=== PATIENT | male | born 1955 | race Caucasian/White ===

== ENCOUNTER 2019-03-18 15:23 | Inpatient (IN) | payer OTHER ==
[2019-03-18] MEDS ORDERED: ACETAMINOPHEN TAB 325 MG TAB PO PRN (18:41)
[2019-03-18] MEDS: APIXABAN 5 MG TAB PO SCH (20:41)
[2019-03-18] MEDS: CEPHALEXIN 500 MG CAP PO SCH (20:41)
[2019-03-19 07:00] LABS: Basophils # (A) 0.1 k/uL (0-0.2); Basophils % (A) 1 %; Eosinophils # (A) 0.3 k/uL (0-0.7); Eosinophils % (A) 3 %; HCT 31.5 % (39.0-53.0); HGB 10.2 gm/dL (13.0-17.5); Lymphocytes # (A) 1.7 k/uL (1.0-4.8); Lymphocytes % (A) 20 %; MCH 28.5 pg (25.0-35.0); MCHC 32.3 g/dL (31.0-37.0); MCV 88.1 fL (80.0-100.0); Mean Platelet Volume 7.9; Monocytes # (A) 0.4 k/uL (0-1.0); Monocytes % (A) 5 %; Neutrophils # (A) 5.7 k/uL (1.3-7.7); Neutrophils % (A) 69 %; Platelet Count 463 k/uL (150-450); RBC 3.57 m/uL (4.30-5.90); RDW 13.5 % (11.5-15.5); WBC 8.3 k/uL (3.8-10.6)
[2019-03-19 07:02] LABS: ALT 38 U/L (4-49); AST 31 U/L (17-59); African American GFR (CKD) >90 (>60 ml/min/1.73 sqM); Albumin 3.6 g/dL (3.5-5.0); Alkaline Phosphatase 110 U/L (38-126); Anion Gap 6 mmol/L; Blood Urea Nitrogen 21 mg/dL (9-20); Calcium 9.5 mg/dL (8.4-10.2); Carbon Dioxide 32 mmol/L (22-30); Chloride 100 mmol/L (98-107); Glucose 88 mg/dL (74-99); Non-African American GFR(CKD) 87 (>60 ml/min/1.73 sqM); Potassium 4.5 mmol/L (3.5-5.1); Sodium 138 mmol/L (137-145); Total Bilirubin 0.5 mg/dL (0.2-1.3); Total Protein 6.3 g/dL (6.3-8.2)
[2019-03-19] MEDS: CEPHALEXIN 500 MG CAP PO SCH ×2 (08:10→16:39)
[2019-03-19] MEDS: CYANOCOBALAMIN 500 MCG TAB PO SCH (08:10)
[2019-03-19] MEDS: FERROUS SULFATE 325 MG TAB PO SCH (08:10)
[2019-03-19] MEDS: TAMSULOSIN 0.4 MG CAP.ER.24H PO SCH (08:10)
[2019-03-19] MEDS: APIXABAN 5 MG TAB PO SCH ×2 (08:10→21:03)
[2019-03-19] MEDS: FUROSEMIDE 20 MG TAB PO SCH (08:10)
[2019-03-19] MEDS: POTASSIUM CHLORIDE ER 20 MEQ TAB.ER PO SCH (08:10)
[2019-03-19] MEDS ORDERED: DIAZEPAM 5 MG TAB PO STA (12:32)
--- NOTE | 2019-03-19 12:49 | P.HPIM ---
History of Present Illness H&P Date: 03/19/19 Chief Complaint: Mental status changes This is a 63-year-old male patient of Dr. Rene. Patient was hospitalized initially on March 07 at [facility] due to pain and swelling and redness in the left leg after he had an injury where a log landed on his leg while he was cutting wood. His brother used to crowbar to get him out from underneath the log. He had increased pain and swelling redness to the left leg as well as increased confusion. Patient was found to have a DVT in the left leg and significant cellulitis of the leg. He was also found to have renal failure with creatinine of 12 secondary to obstructive uropathy was started on Flomax. The patient was treated with Silvadene and Keflex for cellulitis which has resolved. Patient required Wynn catheter placement for acute kidney injury and obstructive uropathy and was seen by urology as well. He failed a voiding trial in urology placed a coud catheter. Patient had incre asing confusion answering yes or no eye don't note questions. Brother states that he is not at his baseline. CAT scan was done at [facility] that was negative for acute stroke. Carotid Doppler was also negative. Patient was transferred to [facility] as a direct admission with plan to be evaluated by neurology. Now found that neurology is not available until Saturday morning which is March 23. Wynn catheter remains in place. Patient was started on eliquis for DVT. At this time, plan will be to obtain MRI of the brain, continue telemetry to rule out stroke and atrial fibrillation contributing to stroke. No abnormality was seen at [facility] on cardiac m onitor. Patient was evaluated for discharge to both [facility] and [facility] which was denied. Medical [place] is currently evaluating patient for admission. property worker consult will be requested. Review of Systems ROS unobtainable: due to mental status Past Medical History Past Medical History: Deep Vein Thrombosis (DVT), Prostate Disorder Smoking Status: Former smoker Medications and Allergies Home Medications Medication Instructions Recorded Confirmed Type Acetaminophen [Tylenol] 650 mg PO Q6H PRN 03/18/19 03/18/19 History Apixaban [Eliquis] 5 mg PO BID 03/18/19 03/18/19 History Cephalexin [Keflex] 500 mg PO Q8HR 03/18/19 03/18/19 History Cyanocobalamin [Vitamin B-12] 500 mcg PO DAILY 03/18/19 03/18/19 History Ferrous Sulfate [Feosol] 325 mg PO W/BRKFST 03/18/19 03/18/19 History Furosemide [Lasix] 20 mg PO DAILY 03/18/19 03/18/19 History Potassium Chloride ER [K-Dur 20] 20 meq PO DAILY 03/18/19 03/18/19 History SILVER sulfADIAZINE Cream 1 applic TOPICAL DAILY 03/18/19 03/18/19 History [Silvadene 1% Cream] Tamsulosin [Flomax] 0.4 mg PO DAILY 03/18/19 03/18/19 History Allergies Allergy/AdvReac Type Severity Reaction Status Date / Time No Known Allergies Allergy Verified 03/18/19 22:38 Physical Exam Vitals: Vital Signs Temp Pulse Resp BP Pulse Ox 03/19/19 08:00 97.8 F 82 18 124/63 94 L 03/19/19 04:00 98.1 F 71 18 121/70 95 03/19/19 00:00 98.3 F 75 18 124/68 93 L 03/18/19 20:00 98.2 F 90 16 116/62 94 L Intake and Output 03/18/19 03/19/19 03/19/19 22:59 06:59 14:59 Intake Total 120 240 Output Total 400 Balance -280 240 Intake: Oral 120 240 Output: Urine 400 Other: Voiding Method Indwelling Catheter Indwelling Catheter Indwelling Catheter Weight 72 kg 71.4 kg Gen: This is a 63-year-old disheveled appearing male. He is resting in bed appears to be comfortable and in no acute distress. Patient sitter is at the bedside. HEENT: Head is atraumatic, normocephalic. Pupils equal, round. Sclerae is anicteric. NECK: Supple. No JVD. No lymphadenopathy. No thyromegaly. LUNGS: Clear to auscultation. No wheezes or rhonchi. No intercostal retractions. HEART: Regular rate and rhythm. No murmur. ABDOMEN: Soft. Bowel sounds are present. No masses. No tenderness. EXTREMITIES: No pedal edema. No calf tenderness. NEUROLOGICAL: Patient is awake, alert and oriented to person. He is unable to relate his birthdate etc. Cranial nerves 2 through 12 are grossly intact. Results CBC & Chem 7: 03/19/19 06:04 03/19/19 06:04 Labs: Abnormal Lab Results - Last 24 Hours (Table) 03/19/19 03/19/19 Range/Units 06:04 06:04 RBC 3.57 L (4.30-5.90) m/uL Hgb 10.2 L (13.0-17.5) gm/dL Hct 31.5 L (39.0-53.0) % Plt Count 463 H (150-450) k/uL Carbon Dioxide 32 H (22-30) mmol/L BUN 21 H (9-20) mg/dL Thrombosis Risk Factor Assmnt - DVT/VTE Prophylaxis DVT/VTE Prophylaxis: Pharmacologic Prophylaxis ordered Assessment and Plan Plan: 1. Metabolic encephalopathy of unclear etiology, rule out CVA. Consult with neurology on Saturday. MRI of the brain ordered. Continue eliquis, cardiac monitoring to rule out atrial fibrillation. Continue sitter. 2. Acute DVT. Patient was started on eliquis 5 mg twice daily. 3. Acute renal failure secondary to obstructive uropathy, resolved. Continue Flomax 0.4 mg daily and Wynn catheter. 4. Thrombocytosis of unclear etiology. 5. History of adrenal mass. 6. Hydronephrosis, resolved. 7. Anemia of kidney disease. 8. GI prophylaxis. Pepcid. 9. DVT prophylaxis. Eliquis. Patient will be admitted to the hospital for a minimum of 2 night stay. Discharge plan: Possible discharge to medical [place]. Social work consult. Impression and plan of care have been directed as dictated by the signing physician. Kerry Sanabria nurse practitioner acting as scribe for signing physician.
[2019-03-20] MEDS: CEPHALEXIN 500 MG CAP PO SCH ×4 (01:11→23:51)
[2019-03-20] MEDS: FAMOTIDINE 20 MG TAB PO SCH (08:32)
[2019-03-20] MEDS: CYANOCOBALAMIN 500 MCG TAB PO SCH (08:32)
[2019-03-20] MEDS: TAMSULOSIN 0.4 MG CAP.ER.24H PO SCH (08:32)
[2019-03-20] MEDS: APIXABAN 5 MG TAB PO SCH ×2 (08:32→20:51)
[2019-03-20] MEDS: FUROSEMIDE 20 MG TAB PO SCH (08:33)
[2019-03-20] MEDS: FERROUS SULFATE 325 MG TAB PO SCH (08:33)
[2019-03-20] MEDS: POTASSIUM CHLORIDE ER 20 MEQ TAB.ER PO SCH (08:34)
[2019-03-20] MEDS ORDERED: DIAZEPAM 5 MG TAB PO ONE (13:15)
[2019-03-20] MEDS: SENNOSIDES-DOCUSATE SODIUM 1 EACH TAB PO SCH ×2 (13:23→20:51)
--- NOTE | 2019-03-20 15:09 | P.PN ---
Subjective Progress Note Date: 03/20/19 This is a 63-year-old male patient of Dr. Rene. Patient was hospitalized initially on March 07 at [facility] due to pain and swelling and redness in the left leg after he had an injury where a log landed on his leg while he was cutting wood. His brother used to crowbar to get him out from underneath the log. He had increased pain and swelling redness to the left leg as well as increased confusion. Patient was found to have a DVT in the left leg and significant cellulitis of the leg. He was also found to have renal failure with creatinine of 12 secondary to obstructive uropathy was started on Flomax. The patient was treated with Silvadene and Keflex for cellulitis which has resolved. Patient required Wynn catheter placement for acute kidney injury and obstructive uropathy and was seen by urology as well. He failed a voiding trial in urology placed a coud catheter. Patient had increasing confusion answering yes or no eye don't note questions. Brother states that he is not at his baseline. CAT scan was done at [facility] that was negative for acute stroke. Carotid Doppler was also negative. Patient was transferred to [facility] as a direct admission with plan to be evaluated by neurology. Now found that neurology is not available until Saturday morning which is March 23. Wynn catheter remains in place. Patient was started on eliquis for DVT. At this time, plan will be to obtain MRI of the brain, continue telemetry to rule out stroke and atrial fibrillation contributing to stroke. No abnormality was seen at [facility] on diagnostic cardiac sonographer. Patient was evaluated for discharge to both [facility] and [facility] which was denied. Medical [place] is currently evaluating patient for admission. home support worker consult will be requested. 03/20: The patient continues to have a sitter at the bedside. He is scheduled for MRI at 2 in the afternoon. EEG also added. Patient continues to be confused unable to relate his birthday. Mild tenderness in the abdomen noted and Senokot added. No documented bowel movement on record at this facility. Ferrous sulfate will be discontinued if this is contributing to abdominal discomfort. Patient has mild epigastric tenderness. He is afebrile, blood pressure 127/83, heart rate 77. Pulse ox 95% on room air. Review of Systems ROS unobtainable: due to mental status Objective - Vital Signs Vital signs: Vital Signs Temp 98.4 F 03/20/19 00:00 Pulse 77 03/20/19 00:00 Resp 18 03/20/19 00:00 BP 112/78 03/20/19 00:00 Pulse Ox 94 L 03/20/19 00:00 Intake & Output 03/19/19 03/20/19 03/20/19 18:59 06:59 18:59 Intake Total 480 Output Total 1000 650 Balance -520 -650 Weight 69.5 kg Intake: Oral 480 Output: Urine 1000 650 Other: Voiding Method Indwelling Catheter Indwelling Catheter - Exam Gen: This is a 63-year-old disheveled appearing male. He is resting in bed appears to be comfortable and in no acute distress. Patient sitter in place. HEENT: Head is atraumatic, normocephalic. Pupils equal, round. Sclerae is anicteric. NECK: Supple. No JVD. No lymphadenopathy. No thyromegaly. LUNGS: Clear to auscultation. No wheezes or rhonchi. No intercostal retractions. HEART: Regular rate and rhythm. No murmur. ABDOMEN: Soft. Bowel sounds are present. No masses. No tenderness. EXTREMITIES: No pedal edema. No calf tenderness. NEUROLOGICAL: Patient is awake, alert and oriented to person. He is unable to relate his birthdate etc. Cranial nerves 2 through 12 are grossly intact. - Labs CBC & Chem 7: 03/19/19 06:04 03/19/19 06:04 Assessment and Plan Plan: 1. Metabolic encephalopathy of unclear etiology, rule out CVA. Consult with neurology on Saturday. MRI of the brain scheduled for this afternoon. EEG ordered.. Continue eliquis, cardiac monitoring to rule out atrial fibrillation. Continue sitter. 2. Acute DVT. Patient was started on eliquis 5 mg twice daily. 3. Acute renal failure secondary to obstructive uropathy, resolved. Continue Flomax 0.4 mg daily and Wynn catheter. 4. Thrombocytosis of unclear etiology. 5. History of adrenal mass. 6. Hydronephrosis, resolved. 7. Anemia of kidney disease. 8. GI prophylaxis. Pepcid. 9. DVT prophylaxis. Eliquis. Discharge plan: Possible discharge to [facility]. Social work consult. Impression and plan of care have been directed as dictated by the signing physician. Kerry Sanabria nurse practitioner acting as scribe for signing physician.
--- NOTE | 2019-03-20 16:20 | MR ---
EXAMINATION TYPE: MR brain wo/w con DATE OF EXAM: 03/20/2019 COMPARISON: [facility] HISTORY: Mental status changes, confusion CONTRAST: Performed utilizing 7.5 mL intravenous Gadavist gadolinium contrast. TECHNIQUE: Multiplanar, multiecho imaging on a 3.0 Lizette magnet is performed through the brain. Stud y is performed within 24 hours of arrival to the hospital. The craniovertebral junction is normal. The pituitary is normal. Diffusion-weighted imaging is performed. No abnormal hyperintensity is present to suggest an acute i ntracranial infarct or acute ischemic change. There is some mild periventricular white matter hyperintensity on T2 and inversion recovery weighted sequences compatible some microvascular ischemic change. Following contrast administration no abnormal is evident. Ventricles and sulci are appropriate for the patient age. IMPRESSIONS: 1. No acute intracranial process. 2. Age-related atrophy with mild periventricular white matter ischemic type changes.
--- NOTE | 2019-03-20 22:12 | EEG ---
ELECTROENCEPHALOGRAM REPORT PROCEDURE DATE: 03/20/2019 ELECTROENCEPHALOGRAM (EEG) REPORT: TECHNIQUE: A routine 18 channel EEG was performed without video using the 10/20 international electrode placement system. HISTORY: Encephalopathy. CURRENT MEDICATIONS: Flomax, Lasix, Eliquis, Keflex. STUDY DURATION: 25 minutes. FINDINGS: Interpretation was performed at 5-microvolt sensitivity. Please note that portions of the recording were limited in interpretation by the presence of muscle artifact. BACKGROUND: The background activity consisted of 8-9 hertz rhythmic waveforms symmetrically distributed over both posterior quadrants. ACTIVATION: Hyperventilation: Not performed. Photic stimulation: Symmetric driving seen. Sleep: Drowsy. ABNORMALITIES: None. IMPRESSION: Normal EEG. No epileptiform activity was present. No seizures were recorded. MMODL / IJN: [id number] / MTDD
--- NOTE | 2019-03-21 07:19 | P.PN ---
Subjective Progress Note Date: 03/21/19 This is a 63-year-old male patient of Dr. Rene. Patient was hospitalized initially on March 07 at [facility] due to pain and swelling and redness in the left leg after he had an injury where a log landed on his leg while he was cutting wood. His brother used to crowbar to get him out from underneath the log. He had increased pain and swelling redness to the left leg as well as increased confusion. Patient was found to have a DVT in the left leg and significant cellulitis of the leg. He was also found to have renal failure with creatinine of 12 secondary to obstructive uropathy was started on Flomax. The patient was treated with Silvadene and Keflex for cellulitis which has resolved. Patient required Wynn catheter placement for acute kidney injury and obstructive uropathy and was seen by urology as well. He failed a voiding trial in urology placed a coud catheter. Patient had increasing confusion answering yes or no eye don't note questions. Brother states that he is not at his baseline. CAT scan was done at [facility] that was negative for acute stroke. Carotid Doppler was also negative. Patient was transferred to [facility] as a direct admission with plan to be evaluated by neurology. Now found that neurology is not available until Saturday morning which is March 23. Wynn catheter remains in place. Patient was started on eliquis for DVT. At this time, plan will be to obtain MRI of the brain, continue telemetry to rule out stroke and atrial fibrillation contributing to stroke. No abnormality was seen at [facility] on oracle soa architect. Patient was evaluated for discharge to both [facility] and [facility] which was denied. Medical [place] is currently evaluating patient for admission. chemical plant worker consult will be requested. 03/20: The patient continues to have a sitter at the bedside. He is scheduled for MRI at 2 in the afternoon. EEG also added. Patient continues to be confused unable to relate his birthday. Mild tenderness in the abdomen noted and Senokot added. No documented bowel movement on record at this facility. Ferrous sulfate will be discontinued if this is contributing to abdominal discomfort. Patient has mild epigastric tenderness. He is afebrile, blood pressure 127/83, heart rate 77. Pulse ox 95% on room air. 03/21: Yesterday, patient underwent MRI that showed no acute intracranial process. There was age-related atrophy with mild periventricular white matter ischemic changes. EEG was normal. Patient has been afebrile, heart rate 79, blood pressure 114/69, pulse ox 97% on room air. Patient has a sitter at the bedside and continues to have significant confusion. He is awake and alert. Review of Systems Constitutional: No fever, no chills, no night sweats. No weight change. No weakness, fatigue or lethargy. No daytime sleepiness. EENT: No headache. No blurred vision or double vision, no loss of vision. No loss of Hearing, no ringing in the ears, no dizziness. No nasal drainage or congestion. No epistaxis. No sore throat. Lungs: No shortness of breath, cough, no sputum production. No wheezing. Cardiovascular: No chest pain, no lower extremity edema. No palpitations. No paroxysmal nocturnal dyspnea. No orthopnea. No lightheadedness or dizziness. No syncopal episodes. Abdominal: No abdominal pain. No nausea, vomiting. No diarrhea. No constipation. No bloody or tarry stools.. No loss of appetite. Genitourinary: No dysuria, increased frequency, urgency. No urinary retention. Musculoskeletal: No myalgias. No muscle weakness, no gait dysfunction, no frequent falls. No back pain. No neck pain. Integumentary: No wounds, no lesions. No rash or pruritus. No unusual bruising. No change in hair or nails. Neurologic: No aphasia. No facial droop. No change in mentation. No head injury. No headache. No paralysis. No paresthesia. Psychiatric: No depression. No anxiety. No mood swings. Endocrine: No abnormal blood sugars. No weight change. No excessive sweating or thirst. No cold intolerance. Objective - Vital Signs Vital signs: Vital Signs Temp 98.0 F 03/21/19 00:48 Pulse 79 03/21/19 00:48 Resp 16 03/21/19 03:33 BP 114/69 03/21/19 00:48 Pulse Ox 97 03/21/19 00:48 Intake & Output 03/20/19 03/21/19 03/21/19 18:59 06:59 18:59 Intake Total 400 100 Output Total 550 1250 Balance -150 -1150 Weight 70.1 kg Intake: Oral 400 100 Output: Urine 550 1250 Other: Voiding Method Incontinent Incontinent - Exam Gen: This is a 63-year-old disheveled appearing male. He is sitting up in bed appears to be comfortable and in no acute distress. Patient sitter at bedside. HEENT: Head is atraumatic, normocephalic. Pupils equal, round. Sclerae is anicteric. NECK: Supple. No JVD. No lymphadenopathy. No thyromegaly. LUNGS: Clear to auscultation. No wheezes or rhonchi. No intercostal retractions. HEART: Regular rate and rhythm. No murmur. ABDOMEN: Soft. Bowel sounds are present. No masses. No tenderness. EXTREMITIES: No pedal edema. No calf tenderness. No cellulitis in the left lower extremity. This is resolved completely. NEUROLOGICAL: Patient is awake, alert and oriented to person. He is unable to relate his birthdate etc. Cranial nerves 2 through 12 are grossly intact. - Labs CBC & Chem 7: 03/19/19 06:04 03/19/19 06:04 Assessment and Plan Plan: 1. Metabolic encephalopathy of unclear etiology, rule out CVA. Consult with neurology on Saturday. MRI of the brain and EEG showed no acute findings. Continue eliquis, cardiac monitoring ruled out atrial fibrillation. Discontinue telemetry. Continue sitter. 2. Acute DVT. Patient was started on eliquis 5 mg twice daily. 3. Acute renal failure secondary to obstructive uropathy, resolved. Continue Flomax 0.4 mg daily and Wynn catheter. 4. Thrombocytosis of unclear etiology. 5. History of adrenal mass. 6. Hydronephrosis, resolved. 7. Anemia of kidney disease. 8. GI prophylaxis. Pepcid. 9. DVT prophylaxis. Eliquis. 10. Cellulitis of the left lower extremity, resolved. Discontinue Keflex, discontinue Silvadene. Discharge plan: Possible discharge to [facility]. Patient was evaluated at [facility] by [facility] [place] in both have denied admission. Social work consult. Impression and plan of care have been directed as dictated by the signing physician. Kerry Sanabria nurse practitioner acting as scribe for signing physician.
[2019-03-21] MEDS: TAMSULOSIN 0.4 MG CAP.ER.24H PO SCH (07:53)
[2019-03-21] MEDS: SENNOSIDES-DOCUSATE SODIUM 1 EACH TAB PO SCH ×2 (07:53→19:51)
[2019-03-21] MEDS: FAMOTIDINE 20 MG TAB PO SCH (07:54)
[2019-03-21] MEDS: FUROSEMIDE 20 MG TAB PO SCH (07:54)
[2019-03-21] MEDS: CYANOCOBALAMIN 500 MCG TAB PO SCH (07:54)
[2019-03-21] MEDS: POTASSIUM CHLORIDE ER 20 MEQ TAB.ER PO SCH (07:54)
[2019-03-21] MEDS: CEPHALEXIN 500 MG CAP PO SCH (07:54)
[2019-03-21] MEDS: APIXABAN 5 MG TAB PO SCH ×2 (07:54→19:51)
[2019-03-22] MEDS: TAMSULOSIN 0.4 MG CAP.ER.24H PO SCH (08:19)
[2019-03-22] MEDS: FUROSEMIDE 20 MG TAB PO SCH (08:19)
[2019-03-22] MEDS: POTASSIUM CHLORIDE ER 20 MEQ TAB.ER PO SCH (08:19)
[2019-03-22] MEDS: FAMOTIDINE 20 MG TAB PO SCH (08:19)
[2019-03-22] MEDS: SENNOSIDES-DOCUSATE SODIUM 1 EACH TAB PO SCH ×2 (08:19→20:01)
[2019-03-22] MEDS: APIXABAN 5 MG TAB PO SCH ×2 (08:19→20:01)
[2019-03-22] MEDS: CYANOCOBALAMIN 500 MCG TAB PO SCH (08:19)
--- NOTE | 2019-03-22 15:04 | P.PN ---
Subjective Progress Note Date: 03/22/19 This is a 63-year-old male patient of Dr. Rene. Patient was hospitalized initially on March [address] [facility] due to pain and swelling and redness in the left leg after he had an injury where a log landed on his leg while he was cutting wood. His brother used to crowbar to get him out from underneath the log. He had increased pain and swelling redness to the left leg as well as increased confusion. Patient was found to have a DVT in the left leg and significant cellulitis of the leg. He was also found to have renal failure with creatinine of 12 secondary to obstructive uropathy was started on Flomax. The patient was treated with Silvadene and Keflex for cellulitis which has resolved. Patient required Wynn catheter placement for acute kidney injury and obstructive uropathy and was seen by urology as well. He failed a voiding trial in urology placed a coud catheter. Patient had increasing confusion answering yes or no eye don't note questions. Brother states that he is not at his baseline. CAT scan was done at [facility] that was negative for acute stroke. Carotid Doppler was also negative. Patient was transferred to [facility] as a direct admission with plan to be evaluated by neurology. Now found that neurology is not available until Saturday morning which is March 23. Wynn catheter remains in place. Patient was started on eliquis for DVT. At this time, plan will be to obtain MRI of the brain, continue telemetry to rule out stroke and atrial fibrillation contributing to stroke. No abnormality was seen at [facility] on classroom monitor. Patient was evaluated for discharge to both [facility] and [facility] which was denied. [facility] is currently evaluating patient for admission. hired worker consult will be requested. 03/20: The patient continues to have a sitter at the bedside. He is scheduled for MRI at 2 in the afternoon. EEG also added. Patient continues to be confused unable to relate his birthday. Mild tenderness in the abdomen noted and Senokot added. No documented bowel movement on record at this facility. Ferrous sulfate will be discontinued if this is contributing to abdominal discomfort. Patient has mild epigastric tenderness. He is afebrile, blood pressure 127/83, heart rate 77. Pulse ox 95% on room air. 03/21: Yesterday, patient underwent MRI that showed no acute intracranial process. There was age-related atrophy with mild periventricular white matter ischemic changes. EEG was normal. Patient has been afebrile, heart rate 79, blood pressure 114/69, pulse ox 97% on room air. Patient has a sitter at the bedside and continues to have significant confusion. He is awake and alert. 03/22: Patient remains pleasantly confused. He denies any pain in his leg. He denies any abdominal pain. According to nursing staff. Patient's gait is steady when he is up and ambulating. Patient has disconnected his Wynn catheter and bag is being changed by the nurse. Awaiting neurology evaluation which was expected for Saturday but found out today that there is no neurology coverage until March 30. Case management/social research assistant working on discharge planning. Review of Systems Constitutional: No fever, no chills, no night sweats. No weight change. No weakness, fatigue or lethargy. No daytime sleepiness. EENT: No headache. No blurred vision or double vision, no loss of vision. No loss of Hearing, no ringing in the ears, no dizziness. No nasal drainage or congestion. No epistaxis. No sore throat. Lungs: No shortness of breath, cough, no sputum production. No wheezing. Cardiovascular: No chest pain, no lower extremity edema. No palpitations. No paroxysmal nocturnal dyspnea. No orthopnea. No lightheadedness or dizziness. No syncopal episodes. Abdominal: No abdominal pain. No nausea, vomiting. No diarrhea. No constipation. No bloody or tarry stools.. No loss of appetite. Genitourinary: No dysuria, increased frequency, urgency. No urinary retention. Musculoskeletal: No myalgias. No muscle weakness, no gait dysfunction, no frequent falls. No back pain. No neck pain. Integumentary: No wounds, no lesions. No rash or pruritus. No unusual bruising. No change in hair or nails. Neurologic: No aphasia. No facial droop. Positive change in mentation. No head injury. No headache. No paralysis. No paresthesia. Psychiatric: No depression. No anxiety. No mood swings. Endocrine: No abnormal blood sugars. No weight change. No excessive sweating or thirst. No cold intolerance. Objective - Vital Signs Vital signs: Vital Signs Temp 98.1 F 03/22/19 07:39 Pulse 88 03/22/19 07:39 Resp 16 03/22/19 07:39 BP 129/66 03/22/19 07:39 Pulse Ox 97 03/22/19 07:39 Intake & Output 03/21/19 03/22/19 03/22/19 18:59 06:59 18:59 Output Total 1325 500 Balance -1325 -500 Weight 70 kg Output: Urine 1325 500 Other: Voiding Method Indwelling Catheter Indwelling Catheter # Voids 2 # Bowel Movements 2 - Exam Gen: This is a 63-year-old male. He is sitting up in bed appears to be comfortable and in no acute distress. HEENT: Head is atraumatic, normocephalic. Pupils equal, round. Sclerae is anicteric. NECK: Supple. No JVD. No lymphadenopathy. No thyromegaly. LUNGS: Clear to auscultation. No wheezes or rhonchi. No intercostal retractions. HEART: Regular rate and rhythm. No murmur. ABDOMEN: Soft. Bowel sounds are present. No masses. No tenderness. EXTREMITIES: No pedal edema. No calf tenderness. No cellulitis in the left lower extremity. This is resolved completely. NEUROLOGICAL: Patient is awake, alert and oriented to person. He is unable to relate his birthdate etc. Cranial nerves 2 through 12 are grossly intact. - Labs CBC & Chem 7: 03/19/19 06:04 03/19/19 06:04 Assessment and Plan Plan: 1. Metabolic encephalopathy of unclear etiology, rule out CVA. Consult with neurology on Saturday--not available until March 30. MRI of the brain and EEG showed no acute findings. Continue eliquis, cardiac monitoring ruled out atrial fibrillation. Discontinue telemetry. 2. Acute DVT. Patient was started on eliquis 5 mg twice daily. 3. Acute renal failure secondary to obstructive uropathy, resolved. Continue Flomax 0.4 mg daily and Wynn catheter. 4. Thrombocytosis of unclear etiology. 5. History of adrenal mass. 6. Hydronephrosis, resolved. 7. Anemia of kidney disease. 8. GI prophylaxis. Pepcid. 9. DVT prophylaxis. Eliquis. 10. Cellulitis of the left lower extremity, resolved. Discontinue Keflex, discontinue Silvadene. Discharge plan: Possible discharge to [facility]. Patient was evaluated at [facility] by [facility] and [facility] in both have denied admission. Social work consult. Impression and plan of care have been directed as dictated by the signing physician. Kerry Sanabria nurse practitioner acting as scribe for signing physician.
[2019-03-23] MEDS: APIXABAN 5 MG TAB PO SCH ×2 (07:43→21:34)
[2019-03-23] MEDS: FAMOTIDINE 20 MG TAB PO SCH (07:43)
[2019-03-23] MEDS: TAMSULOSIN 0.4 MG CAP.ER.24H PO SCH (07:43)
[2019-03-23] MEDS: FUROSEMIDE 20 MG TAB PO SCH (07:43)
[2019-03-23] MEDS: CYANOCOBALAMIN 500 MCG TAB PO SCH (07:43)
[2019-03-23] MEDS: POTASSIUM CHLORIDE ER 20 MEQ TAB.ER PO SCH (07:43)
[2019-03-23] MEDS: SENNOSIDES-DOCUSATE SODIUM 1 EACH TAB PO SCH ×2 (07:43→21:34)
--- NOTE | 2019-03-23 09:14 | P.DS ---
Providers Date of admission: 03/18/19 18:20 Expected date of discharge: 03/27/19 Attending physician: Lidia Connolly MD Consults: 03/18/19 18:43 Consult Physician Routine Consulting Provider: Katlyn Doss Consult Reason/Comments: stroke like symptoms Do you want consulting provider notified?: Yes Placement Type Exists?: Yes 03/22/19 08:01 Consult Physician Routine Consulting Provider: Bean Aviles Consult Reason/Comments: mental status change Do you want consulting provider notified?: Yes Primary care physician: Frances Rene [facility] Course: This is a 63-year-old male patient of Dr. Rene. Patient was hospitalized initially on March 07 at [facility] due to pain and swelling and redness in the left leg after he had an injury where a log landed on his leg while he was cutting wood. His brother used to crowbar to get him out from underneath the log. He had increased pain and swelling redness to the left leg as well as increased confusion. Patient was found to have a DVT in the left leg and significant cellulitis of the leg. He was also found to have renal failure with creatinine of 12 secondary to obstructive uropathy was s tarted on Flomax. The patient was treated with Silvadene and Keflex for cellulitis which has resolved. Patient required Wynn catheter placement for acute kidney injury and obstructive uropathy and was seen by urology as well. He failed a voiding trial in urology placed a coud catheter. Patient had increasing confusion answering yes or no eye don't note questions. Brother states that he is not at his baseline. CAT scan was done at [facility] that was negative for acute stroke. Carotid Doppler was also negative. Patient was transferred to [facility] as a direct admission with plan to be evaluated by neurology. Now found that neurology is not available until Saturday morning which is March 23. Wynn catheter remains in place. Patient was started on eliquis for DVT. At this time, plan will be to obtain MRI of the brain, continue telemetry to rule out stroke and atrial fibrillation contributing to stroke. No abnormality was seen at [facility] on cardiac catheterization technologist. Patient was evaluated for discharge to both [facility] and [facility] which was denied. [facility] is currently evaluating patient for admission. structural layout worker consult will be requested. 03/20: The patient continues to have a sitter at the bedside. He is scheduled for MRI at 2 in the afternoon. EEG also added. Patient continues to be confused unable to relate his birthday. Mild tenderness in the abdomen noted and Senokot added. No documented bowel movement on record at this facility. Ferrous sulfate will be discontinued if this is contributing to abdominal discomfort. Gladis roy has mild epigastric tenderness. He is afebrile, blood pressure 127/83, heart rate 77. Pulse ox 95% on room air. 03/21: Yesterday, patient underwent MRI that showed no acute intracranial proce ss. There was age-related atrophy with mild periventricular white matter ischemic changes. EEG was normal. Patient has been afebrile, heart rate 79, blood pressure 114/69, pulse ox 97% on room air. Patient has a sitter at the bedside and continues to have significant confusion. He is awake and alert. 03/22: Patient remains pleasantly confused. He denies any pain in his leg. He denies any abdominal pain. According to nursing staff. Patient's gait is steady when he is up and ambulating. Patient has disconnected his Wynn catheter and bag is being changed by the nurse. Awaiting neurology evaluation which was expected for Saturday but found out today that there is no neurology coverage until March 30. Case management/social problems specialist working on discharge planning. 03/23: patient remains quite confused but he is able to relate his birthday. He denies having any pain in the lower leg. His gait is steady. He remains with coud catheter in place to Wynn bag. off track betting manager has contacted the patient's brother and he will not be able to pick him up for 10-14 days. 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 Social work will be requested. 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 03/24: The patient states that he wants to get out of here. He is able to relate that he is in the hospital. Brother continues to refuse to pick him up. Social work is working on issues and discharge planning. He has been afebrile, heart rate 70, blood pressure 120/70, pulse ox 97% on room air. 03/25: Patient has had no events overnight. Social work met with Adult Protective Services yesterday with the patient and will be going to the patient's home today. [facility] is evaluating the patient for subacute rehab. Speech therapy has evaluated. Please see ST evaluation. Patient has been afebrile, heart rate 60, blood pressure 134/77, pulse ox 99% on room air. 03/26: Insurance has denied authorization for subacute rehab. Social work continues to work with the patient and family for discharge planning. Adult protective services have been involved. Home was found to be at 37 today. There is a furnace problem although wood stove is working in the home. Patient is afebrile, blood pressure 115/55, heart rate 69, pulse ox 97% on room air. There is an AST that may come in tomorrow to evaluate the patient for placement there. Patient currently does not have a PCP and social work is working with family to find a physician for the patient. The patient is unsafe for discharge to home. 03/27: The patient has refused to take his medications this morning. He states he wants to go home. Social work continues to work on discharge planning. Adult foster care was to come in and evaluate the patient but they have not been here. Adult Protective Services are also involved. Patient has been afebrile, heart rate 71, blood pressure 125/75, pulse ox 100% on room air. SEE SOCIAL WORK NOTES. Patient home with family. Discharge diagnoses: 1. Metabolic encephalopathy of unclear etiology, ruled out CVA. 2. Acute DVT. 3. Acute renal failure secondary to obstructive uropathy, resolved. 4. Thrombocytosis of unclear etiology. 5. History of adrenal mass. 6. Hydronephrosis, resolved. 7. Anemia of kidney disease. 8. Cellulitis of the left lower extremity, resolved. 10. Cellulitis of the left lower extremity, resolved. Discharge plan: home Impression and plan of care have been directed as dictated by the signing physician. Kerry Sanabria nurse practitioner acting as scribe for signing physician. Patient Condition at Discharge: Good Plan - Discharge Summary New Discharge Prescriptions: Continue Ferrous Sulfate [Feosol] 325 mg PO W/BRKFST Cyanocobalamin [Vitamin B-12] 500 mcg PO DAILY Apixaban [Eliquis] 5 mg PO BID #60 tab Tamsulosin [Flomax] 0.4 mg PO DAILY #30 cap Potassium Chloride ER [K-Dur 20] 20 meq PO DAILY #30 tab Furosemide [Lasix] 20 mg PO DAILY #30 tab Discontinued SILVER sulfADIAZINE Cream [Silvadene 1% Cream] 1 applic TOPICAL DAILY Cephalexin [Keflex] 500 mg PO Q8HR Acetaminophen [Tylenol] 650 mg PO Q6H PRN PRN Reason: Pain Discharge Medication List Cyanocobalamin [Vitamin B-12] 500 mcg PO DAILY 03/18/19 [History] Ferrous Sulfate [Feosol] 325 mg PO W/BRKFST 03/18/19 [History] Apixaban [Eliquis] 5 mg PO BID #60 tab 03/23/19 [Rx] Furosemide [Lasix] 20 mg PO DAILY #30 tab 03/23/19 [Rx] Potassium Chloride ER [K-Dur 20] 20 meq PO DAILY #30 tab 03/23/19 [Rx] Tamsulosin [Flomax] 0.4 mg PO DAILY #30 cap 03/23/19 [Rx] Follow up Appointment(s)/Referral(s): John Friedman MD [STAFF PHYSICIAN] - 1 Week Donn Felder MD [STAFF PHYSICIAN] - 1 Week Discharge Disposition: HOME WITH HOME HEALTH SERVICES
[2019-03-24] MEDS: TAMSULOSIN 0.4 MG CAP.ER.24H PO SCH (08:01)
[2019-03-24] MEDS: CYANOCOBALAMIN 500 MCG TAB PO SCH (08:01)
[2019-03-24] MEDS: POTASSIUM CHLORIDE ER 20 MEQ TAB.ER PO SCH (08:01)
[2019-03-24] MEDS: SENNOSIDES-DOCUSATE SODIUM 1 EACH TAB PO SCH ×2 (08:01→21:46)
[2019-03-24] MEDS: FUROSEMIDE 20 MG TAB PO SCH (08:01)
[2019-03-24] MEDS: FAMOTIDINE 20 MG TAB PO SCH (08:01)
[2019-03-24] MEDS: APIXABAN 5 MG TAB PO SCH ×2 (08:01→21:46)
[2019-03-24 11:18] LABS: HCT 36.8 % (39.0-53.0); HGB 11.6 gm/dL (13.0-17.5); MCHC 31.5 g/dL (31.0-37.0); MCV 88.8 fL (80.0-100.0); Mean Platelet Volume 8.3; Platelet Count 421 k/uL (150-450); RBC 4.14 m/uL (4.30-5.90); RDW 13.9 % (11.5-15.5); WBC 8.1 k/uL (3.8-10.6)
[2019-03-24 11:30] LABS: Albumin 4.3 g/dL (3.5-5.0); Calcium 9.8 mg/dL (8.4-10.2); Potassium 4.6 mmol/L (3.5-5.1); Total Bilirubin 0.6 mg/dL (0.2-1.3); Total Protein 7.3 g/dL (6.3-8.2)
--- NOTE | 2019-03-24 14:06 | P.PN ---
Subjective Progress Note Date: 03/23/19 This is a 63-year-old male patient of Dr. Rene. Patient was hospitalized initially on March 07 at [facility] due to pain and swelling and redness in the left leg after he had an injury where a log landed on his leg while he was cutting wood. His brother used to crowbar to get him out from underneath the log. He had increased pain and swelling redness to the left leg as well as increased confusion. Patient was found to have a DVT in the left leg and significant cellulitis of the leg. He was also found to have renal failure with creatinine of 12 secondary to obstructive uropathy was started on Flomax. The patient was treated with Silvadene and Keflex for cellulitis which has resolved. Patient required Wynn catheter placement for acute kidney injury and obstructive uropathy and was seen by urology as well. He failed a voiding trial in urology placed a coud catheter. Patient had increasing confusion answering yes or no eye don't note questions. Brother states that he is not at his baseline. CAT scan was done at [facility] that was negative for acute stroke. Carotid Doppler was also negative. Patient was transferred to [facility] as a direct admission with plan to be evaluated by neurology. Now found that neurology is not available until Saturday morning which is March 23. Wynn catheter remains in place. Patient was started on eliquis for DVT. At this time, plan will be to obtain MRI of the brain, continue telemetry to rule out stroke and atrial fibrillation contributing to stroke. No abnormality was seen at [facility] on site monitor. Patient was evaluated for discharge to both [facility] and [facility] which was denied. [facility] [place] is currently evaluating patient for admission. foster care social worker consult will be requested. 03/20: The patient continues to have a sitter at the bedside. He is scheduled for MRI at 2 in the afternoon. EEG also added. Patient continues to be confused unable to relate his birthday. Mild tenderness in the abdomen noted and Senokot added. No documented bowel movement on record at this facility. Ferrous sulfate will be discontinued if this is contributing to abdominal discomfort. Patient has mild epigastric tenderness. He is afebrile, blood pressure 127/83, heart rate 77. Pulse ox 95% on room air. 03/21: Yesterday, patient underwent MRI that showed no acute intracranial process. There was age-related atrophy with mild periventricular white matter ischemic changes. EEG was normal. Patient has been afebrile, heart rate 79, blood pressure 114/69, pulse ox 97% on room air. Patient has a sitter at the bedside and continues to have significant confusion. He is awake and alert. 03/22: Patient remains pleasantly confused. He denies any pain in his leg. He denies any abdominal pain. According to nursing staff. Patient's gait is steady when he is up and ambulating. Patient has disconnected his Wynn catheter and bag is being changed by the nurse. Awaiting neurology evaluation which was expected for Saturday but found out today that there is no neurology coverage until March 30. Case management/high school social science teacher working on discharge planning. 03/23; patient remains quite confused but he is able to relate his birthday. He denies having any pain in the lower leg. His gait is steady. He remains with coud catheter in place to Wynn bag. affiliate marketing manager has contacted the patient's brother and he will not be able to pick him up for 10-14 days. 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 Social work will be requested. 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 Review of Systems Constitutional: No fever, no chills, no night sweats. No weight change. No we akness, fatigue or lethargy. No daytime sleepiness. EENT: No headache. No blurred vision or double vision, no loss of vision. No loss of Hearing, no ringing in the ears, no dizziness. No nasal drainage or congestion. No epistaxis. No sore throat. Lungs: No shortness of breath, cough, no sputum production. No wheezing. Cardiovascular: No chest pain, no lower extremity edema. No palpitations. No paroxysmal nocturnal dyspnea. No orthopnea. No lightheadedness or dizziness. No syncopal episodes. Abdominal: No abdominal pain. No nausea, vomiting. No diarrhea. No constipation. No bloody or tarry stools.. No loss of appetite. Genitourinary: No dysuria, increased frequency, urgency. Reports urinary retention. Musculoskeletal: No myalgias. No muscle weakness, no gait dysfunction, no frequent falls. No back pain. No neck pain. Integumentary: No wounds, no lesions. No rash or pruritus. No unusual bruising. No change in hair or nails. Neurologic: No aphasia. No facial droop. Positive change in mentation. No head injury. No headache. No paralysis. No paresthesia. Psychiatric: No depression. No anxiety. No mood swings. Endocrine: No abnormal blood sugars. No weight change. No excessive sweating or thirst. No cold intolerance. Objective - Vital Signs Vital signs: Vital Signs Temp 97.6 F 03/23/19 14:52 Pulse 101 H 03/23/19 14:52 Resp 16 03/23/19 14:52 BP 119/75 03/23/19 14:52 Pulse Ox 90 L 03/23/19 14:52 Intake & Output 03/22/19 03/23/19 03/23/19 18:59 06:59 18:59 Intake Total 500 430 472 Output Total 250 Balance 500 180 472 Intake: Oral 500 430 472 Output: Urine 250 Other: Voiding Method Indwelling Catheter Indwelling Catheter Indwelling Catheter # Voids 1 - Exam Gen: This is a 63-year-old male. He is sitting up in bed appears to be comfortable and in no acute distress. HEENT: Head is atraumatic, normocephalic. Pupils equal, round. Sclerae is anicteric. NECK: Supple. No JVD. No lymphadenopathy. No thyromegaly. LUNGS: Clear to auscultation. No wheezes or rhonchi. No intercostal retractions. HEART: Regular rate and rhythm. No murmur. ABDOMEN: Soft. Bowel sounds are present. No masses. No tenderness. Wynn catheter draining clear anthony urine. EXTREMITIES: No pedal edema. No calf tenderness. No cellulitis in the left lower extremity. This is resolved completely. NEUROLOGICAL: Patient is awake, alert and oriented to person. He is unable to relate his birthdate etc. Cranial nerves 2 through 12 are grossly intact. - Labs CBC & Chem 7: 03/24/19 11:02 03/24/19 11:02 Assessment and Plan Plan: 1. Metabolic encephalopathy of unclear etiology, ruled out CVA. Consult with neurology on Saturday--not available until March 30. MRI of the brain and EEG showed no acute findings. Continue eliquis, cardiac monitoring ruled out atrial fibrillation. Discontinue telemetry. 2. Acute DVT. Patient was started on eliquis 5 mg twice daily. 3. Acute renal failure secondary to obstructive uropathy, resolved. Continue Flomax 0.4 mg daily and maintain Wynn catheter. 4. Thrombocytosis of unclear etiology. 5. History of adrenal mass. 6. Hydronephrosis, resolved. 7. Anemia of kidney disease. 8. GI prophylaxis. Pepcid. 9. DVT prophylaxis. Eliquis. 10. Cellulitis of the left lower extremity, resolved. Discontinue Keflex, discontinue Silvadene. [facility] Social work consult. Impression and plan of care have been directed as dictated by the signing physician. Kerry Sanabria nurse practitioner acting as scribe for signing physician.
--- NOTE | 2019-03-24 14:08 | P.PN ---
Subjective Progress Note Date: 03/24/19 This is a 63-year-old male patient of Dr. Rene. Patient was hospitalized initially on March 07 at [facility] due to pain and swelling and redness in the left leg after he had an injury where a log landed on his leg while he was cutting wood. His brother used to crowbar to get him out from underneath the log. He had increased pain and swelling redness to the left leg as well as increased confusion. Patient was found to have a DVT in the left leg and significant cellulitis of the leg. He was also found to have renal failure with creatinine of 12 secondary to obstructive uropathy was started on Flomax. The patient was treated with Silvadene and Keflex for cellulitis which has resolved. Patient required Wynn catheter placement for acute kidney injury and obstructive uropathy and was seen by urology as well. He failed a voiding trial in urology placed a coud catheter. Patient had increasing confusion answering yes or no eye don't note questions. Brother states that he is not at his baseline. CAT scan was done at [facility] that was negative for acute stroke. Carotid Doppler was also negative. Patient was transferred to [facility] as a direct admission with plan to be evaluated by neurology. Now found that neurology is not available until Saturday morning which is March 23. Wynn catheter remains in place. Patient was started on eliquis for DVT. At this time, plan will be to obtain MRI of the brain, continue telemetry to rule out stroke and atrial fibrillation contributing to stroke. No abnormality was seen at [facility] on campus monitor. Patient was evaluated for discharge to both [facility] and [facility] which was denied. [facility] [place] is currently evaluating patient for admission. runner worker consult will be requested. 03/20: The patient continues to have a sitter at the bedside. He is scheduled for MRI at 2 in the afternoon. EEG also added. Patient continues to be confused unable to relate his birthday. Mild tenderness in the abdomen noted and Senokot added. No documented bowel movement on record at this facility. Ferrous sulfate will be discontinued if this is contributing to abdominal discomfort. Patient has mild epigastric tenderness. He is afebrile, blood pressure 127/83, heart rate 77. Pulse ox 95% on room air. 03/21: Yesterday, patient underwent MRI that showed no acute intracranial process. There was age-related atrophy with mild periventricular white matter ischemic changes. EEG was normal. Patient has been afebrile, heart rate 79, blood pressure 114/69, pulse ox 97% on room air. Patient has a sitter at the bedside and continues to have significant confusion. He is awake and alert. 03/22: Patient remains pleasantly confused. He denies any pain in his leg. He denies any abdominal pain. According to nursing staff. Patient's gait is steady when he is up and ambulating. Patient has disconnected his Wynn catheter and bag is being changed by the nurse. Awaiting neurology evaluation which was expected for Saturday but found out today that there is no neurology coverage until March 30. Case management/social work administrator working on discharge planning. 03/23; patient remains quite confused but he is able to relate his birthday. He denies having any pain in the lower leg. His gait is steady. He remains with coud catheter in place to Wynn bag. signal manager has contacted the patient's brother and he will not be able to pick him up for 10-14 days. 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 Social work will be requested. 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 03/24: The patient states that he wants to get out of here. He is able to relate that he is in the hospital. Brother continues to refuse to pick him up. Social work is working on issues and discharge planning. He has been afebrile, heart rate 70, blood pressure 120/70, pulse ox 97% on room air. Review of Systems Constitutional: No fever, no chills, no night sweats. No weight change. No we akness, fatigue or lethargy. EENT: No headache. No blurred vision or double vision, no loss of vision. No loss of Hearing, no ringing in the ears, no dizziness. No nasal drainage or congestion. No epistaxis. No sore throat. Lungs: No shortness of breath, cough, no sputum production. No wheezing. Cardiovascular: No chest pain, no lower extremity edema. No palpitations. No paroxysmal nocturnal dyspnea. No orthopnea. No lightheadedness or dizziness. No syncopal episodes. Abdominal: No abdominal pain. No nausea, vomiting. No diarrhea. No constipation. No bloody or tarry stools.. No loss of appetite. Genitourinary: No dysuria, increased frequency, urgency. Reports urinary reten tion. Musculoskeletal: No myalgias. No muscle weakness, no gait dysfunction, no frequent falls. No back pain. No neck pain. Integumentary: No wounds, no lesions. No rash or pruritus. No unusual b ruising. No change in hair or nails. Neurologic: No aphasia. No facial droop. Positive change in mentation. No head injury. No headache. No paralysis. No paresthesia. Psychiatric: No depression. No anxiety. No mood swings. Endocrine: No abnormal blood sugars. No weight change. No excessive sweating or thirst. No cold intolerance. Objective - Vital Signs Vital signs: Vital Signs Temp 98.1 F 03/24/19 07:00 Pulse 70 03/24/19 07:00 Resp 18 03/24/19 07:00 BP 120/70 03/24/19 07:00 Pulse Ox 97 03/24/19 07:00 Intake & Output 03/23/19 03/24/19 03/24/19 18:59 06:59 18:59 Intake Total 1248 Balance 1248 Intake: Oral 1248 Other: Voiding Method Indwelling Catheter Indwelling Catheter Indwelling Catheter - Exam Gen: This is a 63-year-old male. He is sitting up in chair appears to be comfortable and in no acute distress. HEENT: Head is atraumatic, normocephalic. Pupils equal, round. Sclerae is anicteric. NECK: Supple. No JVD. No lymphadenopathy. No thyromegaly. LUNGS: Clear to auscultation. No wheezes or rhonchi. No intercostal retractions. HEART: Regular rate and rhythm. No murmur. ABDOMEN: Soft. Bowel sounds are present. No masses. No tenderness. Wynn catheter draining clear anthony urine. EXTREMITIES: No pedal edema. No calf tenderness. No cellulitis in the left lower extremity. This is resolved completely. NEUROLOGICAL: Patient is awake, alert and oriented to person. He is unable to relate his birthdate etc. Cranial nerves 2 through 12 are grossly intact. - Labs CBC & Chem 7: 03/24/19 11:02 03/24/19 11:02 Assessment and Plan Plan: 1. Metabolic encephalopathy of unclear etiology, ruled out CVA. Consult with neurology on Saturday--not available until March 30. MRI of the brain and EEG showed no acute findings. Continue eliquis, cardiac monitoring ruled out atrial fibrillation. Discontinue telemetry. 2. Acute DVT. Patient was started on eliquis 5 mg twice daily. 3. Acute renal failure secondary to obstructive uropathy, resolved. Continue Flomax 0.4 mg daily and maintain Wynn catheter. 4. Thrombocytosis of unclear etiology. 5. History of adrenal mass. 6. Hydronephrosis, resolved. 7. Anemia of kidney disease. 8. GI prophylaxis. Pepcid. 9. DVT prophylaxis. Eliquis. 10. Cellulitis of the left lower extremity, resolved. Discontinue Keflex, discontinue Silvadene. Discharge plan: Possible discharge to [facility]. Social work consult in place. Impression and plan of care have been directed as dictated by the signing physician. Kerry Sanabria nurse practitioner acting as scribe for signing physician.
[2019-03-25] MEDS: CYANOCOBALAMIN 500 MCG TAB PO SCH (08:43)
[2019-03-25] MEDS: SENNOSIDES-DOCUSATE SODIUM 1 EACH TAB PO SCH ×2 (08:44→20:57)
[2019-03-25] MEDS: POTASSIUM CHLORIDE ER 20 MEQ TAB.ER PO SCH (08:44)
[2019-03-25] MEDS: APIXABAN 5 MG TAB PO SCH ×2 (08:44→20:57)
[2019-03-25] MEDS: TAMSULOSIN 0.4 MG CAP.ER.24H PO SCH (08:44)
[2019-03-25] MEDS: FUROSEMIDE 20 MG TAB PO SCH (08:44)
[2019-03-25] MEDS: FAMOTIDINE 20 MG TAB PO SCH (08:44)
--- NOTE | 2019-03-25 11:12 | P.PN ---
Subjective Progress Note Date: 03/25/19 This is a 63-year-old male patient of Dr. Rene. Patient was hospitalized initially on March 07 at [facility] due to pain and swelling and redness in the left leg after he had an injury where a log landed on his leg while he was cutting wood. His brother used to crowbar to get him out from underneath the log. He had increased pain and swelling redness to the left leg as well as increased confusion. Patient was found to have a DVT in the left leg and significant cellulitis of the leg. He was also found to have renal failure with creatinine of 12 secondary to obstructive uropathy was started on Flomax. The patient was treated with Silvadene and Keflex for cellulitis which has resolved. Patient required Wynn catheter placement for acute kidney injury and obstructive uropathy and was seen by urology as well. He failed a voiding trial in urology placed a coud catheter. Patient had increasing confusion answering yes or no eye don't note questions. Brother states that he is not at his baseline. CAT scan was done at [facility] that was negative for acute stroke. Carotid Doppler was also negative. Patient was transferred to [facility] as a direct admission with plan to be evaluated by neurology. Now found that neurology is not available until Saturday morning which is March 23. Wynn catheter remains in place. Patient was started on eliquis for DVT. At this time, plan will be to obtain MRI of the brain, continue telemetry to rule out stroke and atrial fibrillation contributing to stroke. No abnormality was seen at [facility] on hall monitor. Patient was evaluated for discharge to both [facility] and [facility] which was denied. [facility] [place] is currently evaluating patient for admission. cut and cover line worker consult will be requested. 03/20: The patient continues to have a sitter at the bedside. He is scheduled for MRI at 2 in the afternoon. EEG also added. Patient continues to be confused unable to relate his birthday. Mild tenderness in the abdomen noted and Senokot added. No documented bowel movement on record at this facility. Ferrous sulfate will be discontinued if this is contributing to abdominal discomfort. Patient has mild epigastric tenderness. He is afebrile, blood pressure 127/83, heart rate 77. Pulse ox 95% on room air. 03/21: Yesterday, patient underwent MRI that showed no acute intracranial process. There was age-related atrophy with mild periventricular white matter ischemic changes. EEG was normal. Patient has been afebrile, heart rate 79, blood pressure 114/69, pulse ox 97% on room air. Patient has a sitter at the bedside and continues to have significant confusion. He is awake and alert. 03/22: Patient remains pleasantly confused. He denies any pain in his leg. He denies any abdominal pain. According to nursing staff. Patient's gait is steady when he is up and ambulating. Patient has disconnected his Wynn catheter and bag is being changed by the nurse. Awaiting neurology evaluation which was expected for Saturday but found out today that there is no neurology coverage until March 30. Case management/social services designee working on discharge planning. 03/23; patient remains quite confused but he is able to relate his birthday. He denies having any pain in the lower leg. His gait is steady. He remains with coud catheter in place to Wynn bag. manager photography has contacted the patient's brother and he will not be able to pick him up for 10-14 days. 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 Social work will be requested. 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 03/24: The patient states that he wants to get out of here. He is able to relate that he is in the hospital. Brother continues to refuse to pick him up. Social work is working on issues and discharge planning. He has been afebrile, heart rate 70, blood pressure 120/70, pulse ox 97% on room air. 03/25: Patient has had no events overnight. Social work met with Adult Protective Services yesterday with the patient and will be going to the patient's home today. [facility] [place] is evaluating the patient for subacute rehab. Speech therapy has evaluated. Please see ST evaluation. Patient has been afebrile, heart rate 60, blood pressure 134/77, pulse ox 99% on room air. Review of Systems Constitutional: No fever, no chills, no night sweats. No weight change. No weakness, fatigue or lethargy. EENT: No headache. No blurred vision or double vision, no loss of vision. No loss of Hearing, no ringing in the ears, no dizziness. No nasal drainage or congestion. No epistaxis. No sore throat. Lungs: No shortness of breath, cough, no sputum production. No wheezing. Cardiovascular: No chest pain, no lower extremity edema. No palpitations. No paroxysmal nocturnal dyspnea. No orthopnea. No lightheadedness or dizziness. No syncopal episodes. Abdominal: No abdominal pain. No nausea, vomiting. No diarrhea. No constipation. No bloody or tarry stools.. No loss of appetite. Genitourinary: No dysuria, increased frequency, urgency. Reports urinary retention. Musculoskeletal: No myalgias. No muscle weakness, no gait dysfunction, no frequent falls. No back pain. No neck pain. Integumentary: No wounds, no lesions. No rash or pruritus. No unusual bruising. No change in hair or nails. Neurologic: No aphasia. No facial droop. Positive change in mentation. No head injury. No headache. No paralysis. No paresthesia. Psychiatric: No depression. No anxiety. No mood swings. Endocrine: No abnormal blood sugars. No weight change. No excessive sweating or thirst. Objective - Vital Signs Vital signs: Vital Signs Temp 98.1 F 03/25/19 07:00 Pulse 60 03/25/19 07:00 Resp 16 03/25/19 07:00 BP 134/77 03/25/19 07:00 Pulse Ox 99 03/25/19 07:00 Intake & Output 03/24/19 03/25/19 03/25/19 18:59 06:59 18:59 Intake Total 300 150 Output Total 400 300 500 Balance -100 -150 -500 Intake: Oral 300 150 Output: Urine 400 300 500 Uretheral (Wynn) 500 Other: Voiding Method Indwelling Catheter Indwelling Catheter Indwelling Catheter - Exam Gen: This is a 63-year-old male. He is sitting up in chair appears to be comfortable and in no acute distress. Patient verbalizes that he would like to go home. HEENT: Head is atraumatic, normocephalic. Pupils equal, round. Sclerae is anicteric. NECK: Supple. No JVD. No lymphadenopathy. No thyromegaly. LUNGS: Clear to auscultation. No wheezes or rhonchi. No intercostal retractions. HEART: Regular rate and rhythm. No murmur. ABDOMEN: Soft. Bowel sounds are present. No masses. No tenderness. Wynn catheter draining clear anthony urine. EXTREMITIES: No pedal edema. No calf tenderness. No cellulitis in the left lower extremity. This is resolved completely. NEUROLOGICAL: Patient is awake, alert and oriented to person. He is unable to relate his birthdate etc. Cranial nerves 2 through 12 are grossly intact. - Labs CBC & Chem 7: 03/24/19 11:02 03/24/19 11:02 Labs: Abnormal Lab Results - Last 24 Hours (Table) 03/24/19 03/24/19 Range/Units 11:02 11:02 RBC 4.14 L (4.30-5.90) m/uL Hgb 11.6 L (13.0-17.5) gm/dL Hct 36.8 L (39.0-53.0) % Carbon Dioxide 33 H (22-30) mmol/L BUN 24 H (9-20) mg/dL Assessment and Plan Plan: 1. Metabolic encephalopathy of unclear etiology, ruled out CVA. Consult with neurology on Saturday--not available until March 30. MRI of the brain and EEG showed no acute findings. Continue eliquis, cardiac monitoring ruled out atrial fibrillation. Discontinue telemetry. 2. Acute DVT. Patient was started on eliquis 5 mg twice daily. 3. Acute renal failure secondary to obstructive uropathy, resolved. Continue Flomax 0.4 mg daily and maintain Wynn catheter. 4. Thrombocytosis of unclear etiology. 5. History of adrenal mass. 6. Hydronephrosis, resolved. 7. Anemia of kidney disease. 8. GI prophylaxis. Pepcid. 9. DVT prophylaxis. Eliquis. 10. Cellulitis of the left lower extremity, resolved. Discontinue Keflex, discontinue Silvadene. Discharge plan: Possible discharge to [facility]. Social work consult in place. Adult Protective Services involved in evaluating patient and living situation. Patient may require guardian. Impression and plan of care have been directed as dictated by the signing physician. Kerry Sanabria nurse practitioner acting as scribe for signing physician.
[2019-03-25 14:32] VITALS: BMI 20.9
[2019-03-26] MEDS: CYANOCOBALAMIN 500 MCG TAB PO SCH (08:13)
[2019-03-26] MEDS: TAMSULOSIN 0.4 MG CAP.ER.24H PO SCH (08:13)
[2019-03-26] MEDS: SENNOSIDES-DOCUSATE SODIUM 1 EACH TAB PO SCH ×2 (08:13→21:29)
[2019-03-26] MEDS: APIXABAN 5 MG TAB PO SCH ×2 (08:13→21:29)
[2019-03-26] MEDS: FAMOTIDINE 20 MG TAB PO SCH (08:14)
[2019-03-26] MEDS: POTASSIUM CHLORIDE ER 20 MEQ TAB.ER PO SCH (08:14)
[2019-03-26] MEDS: FUROSEMIDE 20 MG TAB PO SCH (08:14)
--- NOTE | 2019-03-26 14:57 | P.PN ---
Subjective Progress Note Date: 03/26/19 This is a 63-year-old male patient of Dr. Rene. Patient was hospitalized initially on March 07 at [facility] due to pain and swelling and redness in the left leg after he had an injury where a log landed on his leg while he was cutting wood. His brother used to crowbar to get him out from underneath the log. He had increased pain and swelling redness to the left leg as well as increased confusion. Patient was found to have a DVT in the left leg and significant cellulitis of the leg. He was also found to have renal failure with creatinine of 12 secondary to obstructive uropathy was started on Flomax. The patient was treated with Silvadene and Keflex for cellulitis which has resolved. Patient required Wynn catheter placement for acute kidney injury and obstructive uropathy and was seen by urology as well. He failed a voiding trial in urology placed a coud catheter. Patient had increasing confusion answering yes or no eye don't note questions. Brother states that he is not at his baseline. CAT scan was done at [facility] that was negative for acute stroke. Carotid Doppler was also negative. Patient was transferred to [facility] as a direct admission with plan to be evaluated by neurology. Now found that neurology is not available until Saturday morning which is March 23. Wynn catheter remains in place. Patient was started on eliquis for DVT. At this time, plan will be to obtain MRI of the brain, continue telemetry to rule out stroke and atrial fibrillation contributing to stroke. No abnormality was seen at [facility] on lathing supervisor. Patient was evaluated for discharge to both [facility] and [facility] which was denied. [facility] is currently evaluating patient for admission. food counter worker consult will be requested. 03/20: The patient continues to have a sitter at the bedside. He is scheduled for MRI at 2 in the afternoon. EEG also added. Patient continues to be confused unable to relate his birthday. Mild tenderness in the abdomen noted and Senokot added. No documented bowel movement on record at this facility. Ferrous sulfate will be discontinued if this is contributing to abdominal discomfort. Patient has mild epigastric tenderness. He is afebrile, blood pressure 127/83, heart rate 77. Pulse ox 95% on room air. 03/21: Yesterday, patient underwent MRI that showed no acute intracranial process. There was age-related atrophy with mild periventricular white matter ischemic changes. EEG was normal. Patient has been afebrile, heart rate 79, blood pressure 114/69, pulse ox 97% on room air. Patient has a sitter at the bedside and continues to have significant confusion. He is awake and alert. 03/22: Patient remains pleasantly confused. He denies any pain in his leg. He denies any abdominal pain. According to nursing staff. Patient's gait is steady when he is up and ambulating. Patient has disconnected his Wynn catheter and bag is being changed by the nurse. Awaiting neurology evaluation which was expected for Saturday but found out today that there is no neurology coverage until March 30. Case management/clinical social worker working on discharge planning. 03/23; patient remains quite confused but he is able to relate his birthday. He denies having any pain in the lower leg. His gait is steady. He remains with coud catheter in place to Wynn bag. dba manager has contacted the patient's brother and he will not be able to pick him up for 10-14 days. 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 Social work will be requested. 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 03/24: The patient states that he wants to get out of here. He is able to relate that he is in the hospital. Brother continues to refuse to pick him up. Social work is working on issues and discharge planning. He has been afebrile, heart rate 70, blood pressure 120/70, pulse ox 97% on room air. 03/25: Patient has had no events overnight. Social work met with Adult Protective Services yesterday with the patient and will be going to the patient's home today. [facility] is evaluating the patient for subacute rehab. Speech therapy has evaluated. Please see ST evaluation. Patient has been afebrile, heart rate 60, blood pressure 134/77, pulse ox 99% on room air. 03/26: Insurance has denied authorization for subacute rehab. Social work continues to work with the patient and family for discharge planning. Adult pr otective services have been involved. Home was found to be at 37 today. There is a furnace problem although wood stove is working in the home. Patient is afebrile, blood pressure 115/55, heart rate 69, pulse ox 97% on room air. There is an AST that may come in tomorrow to evaluate the patient for placement there. Patient currently does not have a PCP and social work is working with family to find a physician for the patient. The patient is unsafe for discharge to home. Review of Systems Constitutional: No fever, no chills, no night sweats. No weight change. No weakness, fatigue. EENT: No headache. No blurred vision or double vision, no loss of vision. No loss of Hearing, no ringing in the ears, no dizziness. No nasal drainage or congestion. No epistaxis. No sore throat. Lungs: No shortness of breath, cough, no sputum production. No wheezing. Cardiovascular: No chest pain, no lower extremity edema. No palpitations. No paroxysmal nocturnal dyspnea. No orthopnea. No lightheadedness or dizziness. No syncopal episodes. Abdominal: No abdominal pain. No nausea, vomiting. No diarrhea. No constipation. No bloody or tarry stools.. No loss of appetite. Genitourinary: No dysuria, increased frequency, urgency. Reports urinary retention. Musculoskeletal: No myalgias. No muscle weakness, no gait dysfunction, no frequent falls. No back pain. No neck pain. Integumentary: No wounds, no lesions. No rash or pruritus. No unusual bruisin g. No change in hair or nails. Neurologic: No aphasia. No facial droop. Positive change in mentation. No head injury. No headache. No paralysis. No paresthesia. Psychiatric: No depression. No anxiety. No mood swings. Endocrine: No abnormal blood sugars. No weight change. No excessive sweating or thirst. Objective - Vital Signs Vital signs: Vital Signs Temp 98.1 F 03/26/19 01:57 Pulse 80 03/26/19 01:57 Resp 18 03/26/19 01:57 BP 107/73 03/26/19 01:57 Pulse Ox 98 03/26/19 01:57 Intake & Output 03/25/19 03/26/19 03/26/19 18:59 06:59 18:59 Intake Total 540 240 Output Total 550 Balance -550 540 240 Weight 70 kg Intake: Oral 540 240 Output: Urine 550 Uretheral (Wynn) 550 Other: Voiding Method Indwelling Catheter Indwelling Catheter Indwelling Catheter # Voids 2 3 - Exam Gen: This is a 63-year-old male. He is sitting up in chair appears to be comfortable and in no acute distress. HEENT: Head is atraumatic, normocephalic. Pupils equal, round. Sclerae is anicteric. NECK: Supple. No JVD. No lymphadenopathy. No thyromegaly. LUNGS: Clear to auscultation. No wheezes or rhonchi. No intercostal retractions. HEART: Regular rate and rhythm. No murmur. ABDOMEN: Soft. Bowel sounds are present. No masses. No tenderness. Wynn catheter draining clear anthony urine. EXTREMITIES: No pedal edema. No calf tenderness. No cellulitis in the left lower extremity. This is resolved completely. NEUROLOGICAL: Patient is awake, alert and oriented to person. He is unable to relate his birthdate etc. Cranial nerves 2 through 12 are grossly intact. - Labs CBC & Chem 7: 03/24/19 11:02 03/24/19 11:02 Assessment and Plan Plan: 1. Metabolic encephalopathy of unclear etiology, ruled out CVA. Consult with neurology on Saturday--not available until March 30. MRI of the brain and EEG showed no acute findings. Continue eliquis, cardiac monitoring ruled out atrial fibrillation. Discontinue telemetry. 2. Acute DVT. Patient was started on eliquis 5 mg twice daily. 3. Acute renal failure secondary to obstructive uropathy, resolved. Continue Flomax 0.4 mg daily and maintain Ywnn catheter. 4. Thrombocytosis of unclear etiology. 5. History of adrenal mass. 6. Hydronephrosis, resolved. 7. Anemia of kidney disease. 8. GI prophylaxis. Pepcid. 9. DVT prophylaxis. Eliquis. 10. Cellulitis of the left lower extremity, resolved. Discontinue Keflex, discontinue Silvadene. Discharge plan: Insurance authorization denied for subacute rehab. Social work consult in place. Adult Protective Services involved in evaluating patient and living situation. Patient may require guardian. [facility] will be evaluating patient tomorrow. Impression and plan of care have been directed as dictated by the signing physician. Kerry Sanabria nurse practitioner acting as scribe for signing physician.
[2019-03-27] MEDS: APIXABAN 5 MG TAB PO SCH ×2 (09:32→09:35)
[2019-03-27] MEDS: FUROSEMIDE 20 MG TAB PO SCH ×2 (09:32→09:35)
[2019-03-27] MEDS: CYANOCOBALAMIN 500 MCG TAB PO SCH ×2 (09:32→09:35)
[2019-03-27] MEDS: FAMOTIDINE 20 MG TAB PO SCH ×2 (09:32→09:35)
[2019-03-27] MEDS: SENNOSIDES-DOCUSATE SODIUM 1 EACH TAB PO SCH ×2 (09:32→09:35)
[2019-03-27] MEDS: TAMSULOSIN 0.4 MG CAP.ER.24H PO SCH ×2 (09:32→09:35)
[2019-03-27] MEDS: POTASSIUM CHLORIDE ER 20 MEQ TAB.ER PO SCH ×2 (09:32→09:35)
[2019-03-27 15:17] VITALS: BP 125/75; PULSE 71; RESP 17; TEMP 97.8
--- NOTE | 2019-03-27 15:18 | P.PN ---
Subjective Progress Note Date: 03/27/19 This is a 63-year-old male patient of Dr. Rene. Patient was hospitalized initially on March 07 at [facility] due to pain and swelling and redness in the left leg after he had an injury where a log landed on his leg while he was cutting wood. His brother used to crowbar to get him out from underneath the log. He had increased pain and swelling redness to the left leg as well as increased confusion. Patient was found to have a DVT in the left leg and significant cellulitis of the leg. He was also found to have renal failure with creatinine of 12 secondary to obstructive uropathy was started on Flomax. The patient was treated with Silvadene and Keflex for cellulitis which has resolved. Patient required Wynn catheter placement for acute kidney injury and obstructive uropathy and was seen by urology as well. He failed a voiding trial in urology placed a coud catheter. Patient had increasing confusion answering yes or no eye don't note questions. Brother states that he is not at his baseline. CAT scan was done at [facility] that was negative for acute stroke. Carotid Doppler was also negative. Patient was transferred to [facility] as a direct admission with plan to be evaluated by neurology. Now found that neurology is not available until Saturday morning which is March 23. Wynn catheter remains in place. Patient was started on eliquis for DVT. At this time, plan will be to obtain MRI of the brain, continue telemetry to rule out stroke and atrial fibrillation contributing to stroke. No abnormality was seen at [facility] on cardiac cath lab manager. Patient was evaluated for discharge to both [facility] and [facility] which was denied. [facility] [place] is currently evaluating patient for admission. bottom worker consult will be requested. 03/20: The patient continues to have a sitter at the bedside. He is scheduled for MRI at 2 in the afternoon. EEG also added. Patient continues to be confused unable to relate his birthday. Mild tenderness in the abdomen noted and Senokot added. No documented bowel movement on record at this facility. Ferrous sulfate will be discontinued if this is contributing to abdominal discomfort. Patient has mild epigastric tenderness. He is afebrile, blood pressure 127/83, heart rate 77. Pulse ox 95% on room air. 03/21: Yesterday, patient underwent MRI that showed no acute intracranial process. There was age-related atrophy with mild periventricular white matter ischemic changes. EEG was normal. Patient has been afebrile, heart rate 79, blood pressure 114/69, pulse ox 97% on room air. Patient has a sitter at the bedside and continues to have significant confusion. He is awake and alert. 03/22: Patient remains pleasantly confused. He denies any pain in his leg. He denies any abdominal pain. According to nursing staff. Patient's gait is steady when he is up and ambulating. Patient has disconnected his Wynn catheter and bag is being changed by the nurse. Awaiting neurology evaluation which was expected for Saturday but found out today that there is no neurology coverage until March 30. Case management/social media editor working on discharge planning. 03/23; patient remains quite confused but he is able to relate his birthday. He denies having any pain in the lower leg. His gait is steady. He remains with coud catheter in place to Wynn bag. casino shift manager has contacted the patient's brother and he will not be able to pick him up for 10-14 days. 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 Social work will be requested. 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 03/24: The patient states that he wants to get out of here. He is able to relate that he is in the hospital. Brother continues to refuse to pick him up. Social work is working on issues and discharge planning. He has been afebrile, heart rate 70, blood pressure 120/70, pulse ox 97% on room air. 03/25: Patient has had no events overnight. Social work met with Adult Protective Services yesterday with the patient and will be going to the patient's home today. [facility] is evaluating the patient for subacute rehab. Speech therapy has evaluated. Please see ST evaluation. Patient has been afebrile, heart rate 60, blood pressure 134/77, pulse ox 99% on room air. 03/26: Insurance has denied authorization for subacute rehab. Social work continues to work with the patient and family for discharge planning. Adult pr otective services have been involved. Home was found to be at 37 today. There is a furnace problem although wood stove is working in the home. Patient is afebrile, blood pressure 115/55, heart rate 69, pulse ox 97% on room air. There is an AST that may come in tomorrow to evaluate the patient for placement there. Patient currently does not have a PCP and social work is working with family to find a physician for the patient. The patient is unsafe for discharge to home. 03/27: The patient has refused to take his medications this morning. He states he wants to go home. Social work continues to work on discharge planning. Adult foster care was to come in and evaluate the patient but they have not been here. Adult Protective Services are also involved. Patient has been afebrile, heart rate 71, blood pressure 125/75, pulse ox 100% on room air. Review of Systems Constitutional: No fever, no chills, no night sweats. No weight change. No weakness, fatigue. No new complaints. EENT: No headache. No blurred vision or double vision, no loss of vision. No loss of Hearing, no ringing in the ears, no dizziness. No nasal drainage or congestion. No epistaxis. No sore throat. Lungs: No shortness of breath, cough, no sputum production. No wheezing. Cardiovascular: No chest pain, no lower extremity edema. No palpitations. No paroxysmal nocturnal dyspnea. No orthopnea. No lightheadedness or dizziness. No syncopal episodes. Abdominal: No abdominal pain. No nausea, vomiting. No diarrhea. No constipation. No bloody or tarry stools.. No loss of appetite. Genitourinary: No dysuria, increased frequency, urgency. Reports urinary retention. Musculoskeletal: No myalgias. No muscle weakness, no gait dysfunction, no frequent falls. No back pain. No neck pain. Integumentary: No wounds, no lesions. No rash or pruritus. No unusual bruisin g. No change in hair or nails. Neurologic: No aphasia. No facial droop. Positive change in mentation. No head injury. No headache. No paralysis. No paresthesia. Psychiatric: No depression. No anxiety. No mood swings. Endocrine: No abnormal blood sugars. No weight change. No excessive sweating or thirst. Objective - Vital Signs Vital signs: Vital Signs Temp 97.9 F 03/27/19 07:30 Pulse 81 03/27/19 07:30 Resp 16 03/27/19 07:30 BP 126/74 03/27/19 07:30 Pulse Ox 98 03/27/19 07:30 Intake & Output 03/26/19 03/27/19 03/27/19 18:59 06:59 18:59 Intake Total 240 240 500 Output Total 200 200 Balance 40 40 500 Intake: Oral 240 240 500 Output: Urine 200 200 Uretheral (Wynn) 200 Other: Voiding Method Indwelling Catheter Indwelling Catheter Indwelling Catheter - Exam Gen: This is a 63-year-old male. He is sitting up in chair appears to be comfortable and in no acute distress. HEENT: Head is atraumatic, normocephalic. Pupils equal, round. Sclerae is anicteric. NECK: Supple. No JVD. No lymphadenopathy. No thyromegaly. LUNGS: Clear to auscultation. No wheezes or rhonchi. No intercostal retractions. HEART: Regular rate and rhythm. No murmur. ABDOMEN: Soft. Bowel sounds are present. No masses. No tenderness. Wynn catheter draining clear anthony urine. EXTREMITIES: No pedal edema. No calf tenderness. No cellulitis in the left lower extremity. This has resolved completely. NEUROLOGICAL: Patient is awake, alert and oriented to person. He is unable to relate his birthdate etc. Cranial nerves 2 through 12 are grossly intact. - Labs CBC & Chem 7: 03/24/19 11:02 03/24/19 11:02 Assessment and Plan Plan: 1. Metabolic encephalopathy of unclear etiology, ruled out CVA. Consult with neurology on Saturday--not available until March 30. MRI of the brain and EEG showed no acute findings. Continue eliquis, cardiac monitoring ruled out atrial fibrillation. Discontinue telemetry. 2. Acute DVT. Patient was started on eliquis 5 mg twice daily. 3. Acute renal failure secondary to obstructive uropathy, resolved. Continue Flomax 0.4 mg daily and maintain Wynn catheter. 4. Thrombocytosis of unclear etiology. 5. History of adrenal mass. 6. Hydronephrosis, resolved. 7. Anemia of kidney disease. 8. GI prophylaxis. Pepcid. 9. DVT prophylaxis. Eliquis. 10. Cellulitis of the left lower extremity, resolved. Discontinue Keflex, discontinue Silvadene. Discharge plan: Insurance authorization denied for subacute rehab. Social work consult in place. Adult Protective Services involved in evaluating patient and living situation. Patient may require guardian. [facility] will be evaluating patient. Impression and plan of care have been directed as dictated by the signing physician. Kerry Sanabria nurse practitioner acting as scribe for signing physician.
== END 2019-03-27 16:58 | disposition home or self-care (01) | DRG 71 ==
LOC: 3SCARD 18:20 → 4SSUR 03-20 01:37
PROVIDERS: ADMIT Internal Medicine; ATTEND Internal Medicine
DX: G93.41 Metabolic encephalopathy (principal); I82.402 Acute embolism and thrombosis of unspecified deep veins of left lower extremity; N17.9 Acute kidney failure, unspecified; L03.116 Cellulitis of left lower limb; N13.30 Unspecified hydronephrosis; N18.9 Chronic kidney disease, unspecified; D63.1 Anemia in chronic kidney disease; R79.89 Other specified abnormal findings of blood chemistry; Z79.01 Long term (current) use of anticoagulants; Z79.899 Other long term (current) drug therapy; Z87.891 Personal history of nicotine dependence; Z86.61 Personal history of infections of the central nervous system
CPT/HCPCS: 70553; 80053; 85025; 85027; 95819

== ENCOUNTER 2019-04-05 15:19 | Emergency (ER) | payer OTHER ==
[2019-04-05 15:24] VITALS: BP 119/69; PULSE 83; RESP 18; TEMP 97.6
--- NOTE | 2019-04-05 16:05 | ED ---
General Adult HPI - General Source: patient, RN notes reviewed, old records reviewed Mode of arrival: ambulatory Limitations: no limitations <Claudio Malcolm - Last Filed: 04/05/19 17:18> <Kate Urbano - Last Filed: 04/08/19 21:42> - General Chief complaint: Urogenital Stated complaint: wants catheter removed Time Seen by Provider: 04/05/19 15:26 - History of Present Illness Initial comments: 63-year-old male patient past history significant: Recent hospital admission due to altered mental status found to have obstructive uropathy, uremia which resolved, hydronephrosis resolved acute DVT present to ED for chief complaint of catheter. 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 Reports that the catheter is an inconvenience to him. Also reports that he lost the bag for it. Requested to be removed. Denies any other complaints at this time. At time of evaluation patient has no bag on the tube of the indwelling catheter. Systemic: Pt denies fatigue, fever/chills, rash. Pt denies weakness, night sweats, weight loss. Neuro: Pt denies headache, visual disturbances, syncope or pre-syncope. HEENT: Pt denies ocular discharge or irritation, otalgia, rhinorrhea, pharyngitis or notable lymphadenopathy. Cardiopulmonary: Pt denies chest pain, SOB, heart palpitations, dyspnea on exertion. Abdominal/GI: Pt denies abdominal pain, n/v/d. : Pt denies dysuria, burning w/ urination, frequency/urgency. Denies new onset urinary or bowel incontinence. MSK: Pt denies myalgia, loss of strength or function in extremities. Neuro: Pt denies new onset weakness, paresthesias. (Claudio Malcolm) - Related Data Home Medications Medication Instructions Recorded Confirmed Cyanocobalamin [Vitamin B-12] 500 mcg PO DAILY 03/18/19 03/18/19 Ferrous Sulfate [Feosol] 325 mg PO W/BRKFST 03/18/19 03/18/19 Previous Rx's Medication Instructions Recorded Apixaban [Eliquis] 5 mg PO BID #60 tab 03/23/19 Furosemide [Lasix] 20 mg PO DAILY #30 tab 03/23/19 Potassium Chloride ER [K-Dur 20] 20 meq PO DAILY #30 tab 03/23/19 Tamsulosin [Flomax] 0.4 mg PO DAILY #30 cap 03/23/19 Cephalexin [Keflex] 500 mg PO Q6HR 10 Days #40 cap 04/05/19 Allergies Allergy/AdvReac Type Severity Reaction Status Date / Time No Known Allergies Allergy Verified 04/05/19 15:24 Review of Systems ROS Other: All systems not noted in ROS Statement are negative. <Claudio Malcolm - Last Filed: 04/05/19 17:18> ROS Other: All systems not noted in ROS Statement are negative. <Kate Urbano - Last Filed: 04/08/19 21:42> ROS Statement: Those systems with pertinent positive or pertinent negative responses have been documented in the HPI. Past Medical History Past Medical History: Deep Vein Thrombosis (DVT), Prostate Disorder History of Any Multi-Drug Resistant Organisms: None Reported Past Surgical History: No Surgical Hx Reported Past Psychological History: No Psychological Hx Reported Smoking Status: Former smoker Past Alcohol Use History: None Reported <Claudio Malcolm - Last Filed: 04/05/19 17:18> General Exam Limitations: no limitations <Claudio Malcolm - Last Filed: 04/05/19 17:18> - General Exam Comments Initial Comments: Constitutional: NAD, AOX3, Pt has pleasant affect. HEENT: NC/AT, trachea midline, neck supple, no lymphadenopathy. Posterior pharynx non erythematous, without exudates. External ears appear normal, without discharge. Mucous membranes moist. Eyes PERRLA, EOM intact. There is no scleral icterus. No pallor noted. Cardiopulmonary: RRR, no murmurs, rubs or gallops, no JVD noted. Lungs CTAB in anterior and posterior amaya. No peripheral edema. Abdominal exam: Abdomen soft and non-distended. Abdomen non-tender to palpation in all 4 quadrants. Bowel sounds active in LLQ. No hepatosplenomegaly. No ecchymosis. CVA tenderness negative. Neuro: CN II-XII grossly intact. No nuchal rigidity. No raccon eyes, no cassidy sign, no hemotympanum. No cervical spinal tenderness. MSK: No posterior calf tenderness bilaterally, homans sign negative bilaterally. Posterior tibialis and radial pulse +2 bilaterally. Sensation intact in upper and lower extremities. Full active ROM in upper and lower extremities, 5/5 stregnth. : Catheter insertion site inspected, no erythema or signs of infection. (Claudio Malcolm) Course Vital Signs 04/05/19 15:21 Temperature 97.6 F Pulse Rate 83 Respiratory 18 Rate Blood Pressure 119/69 O2 Sat by Pulse 99 Oximetry Medical Decision Making <Claudio Malcolm - Last Filed: 04/05/19 17:18> <Kate Urbano - Last Filed: 04/08/19 21:42> - Medical Decision Making 63-year-old male patient past history significant: Recent hospital admission due to altered mental status found to have obstructive uropathy, uremia which resolved, hydronephrosis resolved acute DVT present to ED for chief complaint of catheter. 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 Reports that the catheter is an inconvenience to him. Also reports that he lost the bag for it. Requested to be removed. Denies any other complaints at this time. At time of evaluation patient has no bag on the tube of the indwelling catheter. Patient vital signs stable, afebrile. Physical exam did not strike pathology. Catheter was removed, patient failed a trial of void. Urine was obtained from the new catheter, this did display urinary tract infection. Patient will be initiated on Keflex. Will follow up with Dr. Friedman tomorrow and will return to ER if condition worsens. Case discussed with Dr. Urbano. (Claudio Malcolm) I was available for consultation in the emergency department. The history and physical exam were done by the midlevel provider. I was consulted for this patients care. I reviewed the case with the midlevel provider and based on their presentation of the patient, I agree with the assessment, medical decision making and plan of care as documented. Chart was dictated using [employer] dictation software. Attempts were made to correct any dictation errors however some typographical errors may persist. (Kate Urbano) - Lab Data Lab Results 04/05/19 Range/Units 16:35 Urine Color Light Yellow Urine Appearance Turbid (Clear) Urine pH 5.0 (5.0-8.0) Ur Specific [place] 1.012 (1.001-1.035) Urine Protein Trace H (Negative) Urine Glucose (UA) Negative (Negative) Urine Ketones Negative (Negative) Urine Blood Small H (Negative) Urine Nitrite Negative (Negative) Urine Bilirubin Negative (Negative) Urine Urobilinogen <2.0 (<2.0) mg/dL Ur Leukocyte Esterase Large H (Negative) Urine RBC 7 H (0-5) /hpf Urine WBC 126 H (0-5) /hpf Urine WBC Clumps Many H (None) /hpf Ur Squamous Epith Cells <1 (0-4) /hpf Urine Bacteria Rare H (None) /hpf Hyaline Casts 1 (0-2) /lpf Urine Mucus Rare H (None) /hpf Disposition Is patient prescribed a controlled substance at d/c from ED?: No <Claudio Malcolm - Last Filed: 04/05/19 17:18> <Kate Urbano - Last Filed: 04/08/19 21:42> Clinical Impression: Wynn catheter in place, UTI (urinary tract infection) Disposition: HOME SELF-CARE Condition: Stable Instructions (If sedation given, give patient instructions): Urinary Tract Infection in Men (ED), Wynn Catheter Placement and Care (ED) Additional Instructions: Take antibiotics as directed. Follow-up with Dr. Friedman tomorrow. Return to ER if condition worsens in anyway. Prescriptions: Cephalexin [Keflex] 500 mg PO Q6HR 10 Days #40 cap Referrals: None,Stated [Primary Care Provider] - 1-2 days John Friedman MD [STAFF PHYSICIAN] - 1-2 days
[2019-04-05 16:48] LABS: Appearance,Urine Turbid (Clear); Bacteria,Urine Rare /hpf; Bilirubin,Urine Negative (Negative); Blood,Urine Small (Negative); Color,Urine Light Yellow; Glucose,Urine (UA) Negative (Negative); Hyaline Casts,Urine 1 /lpf (0-2); Ketones,Urine Negative (Negative); Leukocyte Esterase,Urine Large (Negative); Mucus,Urine Rare /hpf; Nitrite,Urine Negative (Negative); Protein,Urine Trace (Negative); RBC,Urine 7 /hpf (0-5); Specific Gravity,Urine 1.012 (1.001-1.035); Squamous Epithelial Cell,Urine <1 /hpf (0-4); Urobilinogen,Urine <2.0 mg/dL (<2.0); WBC,Urine 126 /hpf (0-5)
[2019-04-05] MEDS ORDERED: CEPHALEXIN 500MG STARTER PACK 4 CAP BTL PO STA (17:05)
[2019-04-05] MEDS ORDERED: CEPHALEXIN 500 MG CAP PO STA (17:05)
== END 2019-04-05 17:26 | disposition home or self-care (01) ==
LOC: EC 15:19
DX: N39.0 Urinary tract infection, site not specified (principal); Z87.891 Personal history of nicotine dependence
CPT/HCPCS: 51702; 81001; 87077; 87086; 87186; 99284

== ENCOUNTER → 2019-04-22 | Outpatient (CLI) | payer OTHER ==
--- NOTE | 2019-04-22 12:57 | CT ---
EXAMINATION TYPE: CT abdomen wo con DATE OF EXAM: 04/22/2019 COMPARISON: None HISTORY: Benign neoplasm of unspecified adrenal gland. CT DLP: 296.4 mGycm Examination of the solid and hollow viscera is limited given the lack of contrast. Unenhanced CT of t he abdomen was performed. Lack of contrast does limit evaluation. GI contrast was administered. FINDINGS: LUNG BASES: No evidence for nodule. No evidence for infiltrate. LIVER/GB: The gallbladder is unremarkable. No space-occupying hepatic lesion. PANCREAS: No pancreatic mass identified. No inflammatory process seen. SPLEEN: No evidence for splenomegaly. No intrasplenic lesions seen. ADRENALS: Right adrenal nodule measuring 2.3 x 2.7 cm. Hounsfield unit measurement is within the eval uation of fat. This likely reflects an adenoma. KIDNEYS: No evidence for renal mass. No nephrolithiasis. There is mild bilateral hydronephrosis ident ified. The partially imaged urinary bladder appears to be quite distended with the dome extending to the level of the umbilicus. Correlate for neurogenic bladder or bladder outlet obstruction. BOWEL: Visualized bowel loops appear to be of normal caliber without inflammatory process. Fixed hiat al hernia noted. Lymph nodes: No evidence for adenopathy greater than 1 cm. Abdominal aorta: Atheromatous changes seen. No evidence for aneurysm. Genital organs: No significant abnormality. Other: No significant abnormality. IMPRESSION: 1. Probable right adrenal adenoma. 2. Findings suspicious for bladder outlet obstruction versus neurogenic bladder. Mild bilateral hydro nephrosis identified.
== END | disposition home or self-care (01) ==
LOC: RADCTMAIN 10:45
PROVIDERS: ATTEND Urology
DX: N13.30 Unspecified hydronephrosis (principal); D35.00 Benign neoplasm of unspecified adrenal gland
CPT/HCPCS: 82565; 84520; 74150; 36415; Q9967

== ENCOUNTER → 2019-05-07 | Outpatient (CLI) | payer OTHER ==
--- NOTE | 2019-05-08 05:15 | US ---
EXAMINATION TYPE: US bladder DATE OF EXAM: 05/07/2019 COMPARISON: NONE CLINICAL HISTORY: 63-year-old male urinary retention Q53.9. Window Repairer notes: Patient is very limite d with his history. States he had a new arreola catheter put in one week ago. Recent CT showed neurogen ic bladder. EXAM MEASUREMENTS: Arreola cath seen with surrounding thick hypoechoic tissue. IMPRESSION: Arreola catheter balloon is visualized. This is surrounded by thickened tissue, possibly redundant and/ or thickened and collapsed bladder wall. Direct visualization if indicated.
== END | disposition home or self-care (01) ==
LOC: RADUSWWP 15:03
PROVIDERS: ATTEND Urology
DX: R33.9 Retention of urine, unspecified (principal); R97.20 Elevated prostate specific antigen [PSA]
CPT/HCPCS: 76857